=== PATIENT | female | born 1980 | race Caucasian/White ===

== ENCOUNTER 2019-10-31 18:00 | Emergency (ER) | payer OTHER, SELFPAY ==
[2019-10-31 18:35] VITALS: BP 139/83; PULSE 100; RESP 14; TEMP 37; O2SAT 99
--- NOTE | 2019-10-31 18:56 | ED.GENADULT ---
HPI - General Adult General Chief complaint: Upper Respiratory Infection Stated complaint: sore throat Time Seen by Provider: 10/31/19 18:56 Source: patient and RN notes reviewed Mode of arrival: ambulatory Limitations: no limitations History of Present Illness HPI narrative: This is a 39 years old female presented office for evaluation of possible strep.Complain of sore throat for 2 weeks. Denies any other associated symptoms such as fever, cough,Or vomiting however she was exposed to strep at home. Related Data Home Medications Medication Instructions Recorded Confirmed Singulair 10 mg PO DAILY 09/06/19 10/31/19 escitalopram oxalate [Lexapro] 20 mg PO DAILY 09/06/19 10/31/19 loratadine 10 mg PO DAILY 09/06/19 10/31/19 albuterol sulfate 2 puff INHALATION QID PRN 10/31/19 10/31/19 budesonide-formoterol [Symbicort] 2 puff INHALATION Q12H 10/31/19 10/31/19 Allergies Allergy/AdvReac Type Severity Reaction Status Date / Time No Known Allergies Allergy Unknown Verified 10/31/19 18:42 Review of Systems Review of Systems: Narrative: CONSTITUTIONAL: Denies fever, chills, sweats. ENT: Denies rhinorrhea, congestion, otalgia. CARDIOVASCULAR: Denies chest pain RESPIRATORY: Denies dyspnea, wheezing, cough GASTROINTESTINAL: Denies abdominal pain, nausea, vomiting, diarrhea. GENITOURINARY: Denies urinary symptoms SKIN: Denies rash MUSCULOSKELETAL: Denies acute back pain, joint pain, or myalgia. NEUROLOGIC: Denies numbness, or focal weakness. PMFSH Past Medical History Medical History Anxiety Asthma Endometriosis Lipoma left chest No pertinent family history Seasonal allergies Surgical History Surgical History H/O section H/O laparoscopy Social History Social History Smoking status: Never smoker Comments At time of signature, I agree with nursing past medical, surgical, social and family history. There is no relevant family history pertinent to the presenting complaint. Exam Narrative: Exam Narrative: GENERAL: This is a well-nourished, well-developed patient, in no apparent distress. EYES: Sclera clear/white. Vision is grossly intact. EARS: External ears normal, auditory canals clear and without drainage, TMs normal without perforation. Hearing grossly intact. NOSE: External nose normal with no obvious nasal discharge, nares without redness, no rhinorrhea. THROAT: Mucous membranes moist, posterior pharynx pink with drainage. NECK: Neck supple, non-tender without lymphadenopathy, masses or thyromegaly. CARDIOVASCULAR: Regular rate and rhythm without murmurs, gallops, or rubs. RESPIRATORY: Clear to auscultation. Breath sounds equal bilaterally. No wheezes, rales, or rhonchi. GASTROINTESTINAL: Abdomen soft, non-tender, nondistended. Bowel sounds are active. No hepato-splenomegaly, or palpable masses. No guarding. SKIN: warm, intact with no suspicious lesions or rash, good texture and turgor. NEURO: awake, alert, and oriented to person, place and time. There were no obvious focal neurologic abnormalities. Steady gait [place] Coma Scale Eye Opening: Spontaneous 4 [place] Coma Scale Motor: Obeys Commands 6 [place] Coma Scale Verbal: Oriented 5 Course Vital Signs Vital signs: Vital Signs Temperature 98.6 F 10/31/19 18:35 Pulse Rate 100 10/31/19 18:35 Respiratory Rate 14 10/31/19 18:35 Blood Pressure 139/83 10/31/19 18:35 Pulse Oximetry 99 10/31/19 18:35 Temperature 98.6 F 10/31/19 18:35 Pulse Rate 100 10/31/19 18:35 Respiratory Rate 14 10/31/19 18:35 Blood Pressure 139/83 10/31/19 18:35 Pulse Oximetry 99 10/31/19 18:35 Medical Decision Making MDM Narrative Medical decision making narrative: Discharge instructions reviewed with patient, as well as provided in writing per nursing staff. The
== END 2019-10-31 19:08 | disposition home or self-care (01) ==
PROVIDERS: Emergency Provider Nurse Practitioner; PCP Internal Medicine
DX: J02.9 Acute pharyngitis, unspecified (principal); R03.0 Elevated blood-pressure reading, without diagnosis of hypertension; J45.909 Unspecified asthma, uncomplicated; N80.9 Endometriosis, unspecified; F41.9 Anxiety disorder, unspecified
CPT/HCPCS: 87081; 87880; 99213; G0463

== ENCOUNTER 2020-06-26 08:07 | Emergency (ER) | payer OTHER, SELFPAY ==
[2020-06-26 08:12] VITALS: BP 122/70; PULSE 88; RESP 20; TEMP 36.6; O2SAT 100
--- NOTE | 2020-06-26 08:16 | ED.URI ---
HPI - URI/Sore Throat General Chief Complaint: Upper Respiratory Infection Stated Complaint: sore throat Time Seen by Provider: 06/26/20 08:16 Source: patient and RN notes reviewed History of Present Illness HPI Narrative: Patient is a 40-year-old female who presents the urgent care with complaints of sore throat, sneezing and runny nose. Patient states that her kids were symptomatic first and then her symptoms started yesterday. 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 Patient denies of any fever, nausea, vomiting, headache, lethargy. States that she does take Zyrtec daily but otherwise has not used any [id number] medication for symptoms. Patient states that her kids have gotten better and she believes it was just their normal cold . No other acute complaints. No acute distress noted. Patient aware of the plan of care. Some parts of this dictation were generated by voice recognition software and may contain typographical and/or grammatical inaccuracies. Related Data Home Medications Medication Instructions Recorded Confirmed escitalopram oxalate [Lexapro] 20 mg PO DAILY 09/06/19 10/31/19 albuterol sulfate 2 puff INHALATION QID PRN 10/31/19 10/31/19 budesonide-formoterol [Symbicort] 2 puff INHALATION Q12H 10/31/19 10/31/19 cetirizine [Zyrtec] 10 mg PO DAILY 06/26/20 06/26/20 montelukast [Singulair] 10 mg PO DAILY 06/26/20 06/26/20 norethindrone-e.estradiol-iron [Lo 1 tablet PO DAILY 06/26/20 06/26/20 Loestrin Fe] Allergies Allergy/AdvReac Type Severity Reaction Status Date / Time No Known Allergies Allergy Unknown Verified 06/26/20 08:29 Review of Systems Review of Systems: Narrative: CONSTITUTIONAL: Denies fever, chills, or sweats. EYES: Denies visual changes, redness, or discharge. ENT: Reports of rhinorrhea, sore throat, postnasal drainage CARDIOVASCULAR: Denies chest pain, palpitations, or edema. RESPIRATORY: Denies cough or dyspnea. GASTROINTESTINAL: Denies abdominal pain, nausea, vomiting, or diarrhea. GENITOURINARY: Denies dysuria or hematuria. SKIN: Denies rash or itching. MUSCULOSKELETAL: Denies back pain, joint pain, or myalgia. NEUROLOGIC: Denies headache, numbness, or weakness. All other systems reviewed are negative, except as documented in HPI. PMFSH Social History Social History Smoking status: Never smoker Comments At the time of my signature, I reviewed and agree with the nursing past medical, surgical, social, and family history. There is no relevant family history pertinent to the patient complaint. Exam Narrative: Exam Narrative: GENERAL: This is a well-nourished, well-developed patient, in no apparent distress. HEAD: normocephalic, atraumatic. EYES: PERRL. Sclera clear/white. Vision is grossly intact. EARS: External ears normal, auditory canals clear and without drainage, TMs normal without perforation. Hearing grossly intact. NOSE: External nose normal with no obvious nasal discharge, nares without redness, no rhinorrhea. THROAT: Mucous membranes moist, mild erythema noted posterior oropharynx without exudate or ulceration. Mild postnasal drainage. NECK: Neck supple, non-tender without lymphadenopathy, masses or thyromegaly. CARDIOVASCULAR: Regular rate and rhythm without murmurs, gallops, or rubs. RESPIRATORY: Clear to auscultation. Breath sounds equal bilaterally. No wheezes, rales, or rhonchi. SKIN: warm, intact with no suspicious lesions or rash, good texture and turgor. NEURO: awake, alert, and oriented to person, place and time. There were no obvious focal neurologic abnormalities. EXTREMITIES: No clubbing, cyanosis, or edema. Course Vital Signs Vital signs: Vital Signs Temperature 98 F 06/26/20 08:12 Pulse Rate 88 06/26/20 08:12 Respiratory Rate 20 06/26/20 08:12 Blood Pressure 122/70 06/26/20 08:12 Pulse Oximetry 100 09
== END 2020-06-26 08:42 | disposition home or self-care (01) ==
PROVIDERS: Emergency Provider Nurse Practitioner Family; PCP Internal Medicine
DX: J02.9 Acute pharyngitis, unspecified (principal); J45.909 Unspecified asthma, uncomplicated; F41.9 Anxiety disorder, unspecified; F32.9 Major depressive disorder, single episode, unspecified
CPT/HCPCS: 87081; 87804; 87880; 99213; G0463

== ENCOUNTER 2021-07-26 10:28 | Emergency (ER) | payer OTHER, SELFPAY ==
[2021-07-26 10:35] VITALS: BP 133/80; PULSE 95; RESP 18; TEMP 36.7; O2SAT 99
--- NOTE | 2021-07-26 10:56 | ED.URI ---
HPI - URI/Sore Throat General Chief Complaint: Upper Respiratory Infection Stated Complaint: throat hurts Time Seen by Provider: 07/26/21 10:56 Source: patient, family and RN notes reviewed Mode of arrival: ambulatory Limitations: no limitations History of Present Illness HPI Narrative: Sara is a 41 year old female who ambulated into the [facility] with c/o sore throat, nasal congestion, and increased use of her rescue inhaler for last five days. She is using claritin daily. Patient states she did recently switch her allergy medication which has increased her congestion. MD elicited complaint: sore throat Related Data Home Medications Medication Instructions Recorded Confirmed escitalopram oxalate [Lexapro] 20 mg PO DAILY 09/06/19 07/26/21 albuterol sulfate 2 puff INHALATION QID PRN 10/31/19 07/26/21 budesonide-formoterol [Symbicort] 2 puff INHALATION Q12H 10/31/19 07/26/21 cetirizine [Zyrtec] 10 mg PO DAILY 06/26/20 07/26/21 montelukast [Singulair] 10 mg PO DAILY 06/26/20 07/26/21 norethindrone-e.estradiol-iron [Lo 1 tablet PO DAILY 06/26/20 07/26/21 Loestrin Fe] Allergies Allergy/AdvReac Type Severity Reaction Status Date / Time No Known Allergies Allergy Unknown Verified 07/26/21 10:46 Review of Systems Review of Systems: CONSTITUTIONAL: Denies body aches, fever, chills, or sweats. EYES: Denies visual changes, redness, or discharge. ENT: + rhinorrhea,+ congestion, + sore throat, denies otalgia. CARDIOVASCULAR: Denies chest pain, palpitations, or edema. RESPIRATORY: Denies cough or dyspnea; increased use of rescue inhaler, + wheezing at home.. GASTROINTESTINAL: Denies abdominal pain, nausea, vomiting, or diarrhea. GENITOURINARY: Denies dysuria or hematuria. SKIN: Denies rash, itching, or wounds. MUSCULOSKELETAL: Denies back pain, joint pain, or myalgia. NEUROLOGIC: Denies headache, numbness, tingling, or weakness. PSYCH: Denies depression or anxiety. All systems reviewed & are unremarkable except as noted in HPI and below PMFSH Past Medical History Medical History (Updated 07/26/21 @ 11:12 by RASHAWN Hair) Anxiety Asthma Endometriosis Lipoma left chest No pertinent family history Seasonal allergies Surgical History Surgical History H/O section H/O laparoscopy Social History Social History Smoking status: Never smoker Comments At time of signature, I have reviewed and agree with nursing past medical, surgical, social and family history unless otherwise noted. Please see nursing chart for further information. There is no relevant family history pertinent to the presenting complaint Exam Narrative: GENERAL: Well-appearing, well-nourished, and in no acute distress. HEAD: Normocephalic, atraumatic. EYES: EOMI. No redness or drainage. Conjunctivae normal. ENT: Mucous membranes pink and moist. Nasal tissue pale, No rhinorrhea. TMs dull with minimal fluid. Throat erythemic, moderate edema no exudate.. Uvula midline. NECK: Normal AROM. Supple. anterior cervical lymphadenopathy. CHEST: No respiratory distress. Clear to auscultation. MUSCULOSKELETAL: No bony tenderness. EXTREMITIES: Normal range of motion. No edema. SKIN: Warm, dry, no rash. Capillary refill normal. Normal skin turgor. NEURO: No focal deficits. Alert and oriented x3. Gait steady. PSYCH: Normal affect. No signs of depression or anxiety. Course Vital Signs Vital signs: Vital Signs Temperature 36.7 C 07/26/21 10:35 Pulse Rate 95 07/26/21 10:35 Respiratory Rate 18 07/26/21 10:35 Blood Pressure 133/80 07/26/21 10:35 Pulse Oximetry 99 07/26/21 10:35 Temperature 36.7 C 07/26/21 10:35 Pulse Rate 95 07/26/21 10:35 Respiratory Rate 18 07/26/21 10:35 Blood Pressure 133/80 07/26/21 10:35 Pulse Oximetry 99 07/26/21 10:35 Reviewed. Pt has been instructed
== END 2021-07-26 11:13 | disposition home or self-care (01) ==
PROVIDERS: Emergency Provider Nurse Practitioner Family; PCP Internal Medicine
DX: J02.9 Acute pharyngitis, unspecified (principal); J45.909 Unspecified asthma, uncomplicated; N80.9 Endometriosis, unspecified; F41.9 Anxiety disorder, unspecified
CPT/HCPCS: 87081; 87880; 99213; G0463

== ENCOUNTER 2022-04-25 11:53 | Emergency (ER) | payer OTHER, SELFPAY ==
[2022-04-25 12:06] VITALS: BP 136/92; PULSE 101; RESP 16; TEMP 36.8; O2SAT 99
--- NOTE | 2022-04-25 12:20 | ED.URI ---
HPI - URI/Sore Throat General Chief Complaint: Upper Respiratory Infection Stated Complaint: Sore Throat Time Seen by Provider: 04/25/22 12:20 History of Present Illness HPI Narrative: 42-year-old female presented for complaint of sore throat for 1 week. Endorses occasional nonproductive cough. had a negative COVID test at home 4 days ago. She denies shortness of breath, wheezing, nausea, vomiting, diarrhea, fevers or chills. She has been taking [id number] Vicks nasal spray and Tylenol for symptoms. She denies sick contacts. Related Data Home Medications Medication Instructions Recorded Confirmed escitalopram oxalate 20 mg tablet 20 mg PO DAILY 09/06/19 04/25/22 (Lexapro) albuterol sulfate 90 mcg/actuation 2 puff inhalation QID PRN Dyspnea 10/31/19 04/25/22 aerosol inhaler budesonide-formoterol HFA 160 2 puff inhalation Q12H 10/31/19 04/25/22 mcg-4.5 mcg/actuation aerosol inhaler (Symbicort) cetirizine 10 mg tablet (Zyrtec) 10 mg PO DAILY 06/26/20 04/25/22 montelukast 10 mg tablet 10 mg PO DAILY 06/26/20 04/25/22 (Singulair) Allergies Allergy/AdvReac Type Severity Reaction Status Date / Time No Known Allergies Allergy Unknown Verified 04/25/22 12:16 Review of Systems Review of Systems: CONSTITUTIONAL: Denies body aches, fever, chills, or sweats. EYES: Denies visual changes, redness, or discharge. ENT: Denies rhinorrhea, congestion CARDIOVASCULAR: Denies chest pain, palpitations, or edema. RESPIRATORY: Denies dyspnea. GASTROINTESTINAL: Denies abdominal pain, nausea, vomiting, or diarrhea. SKIN: Denies rash, itching, or wounds. MUSCULOSKELETAL: Denies back pain, joint pain, or myalgia. NEUROLOGIC: Denies headache PMFSH Past Medical History Medical History Anxiety Asthma Endometriosis Lipoma left chest No pertinent family history Seasonal allergies Surgical History Surgical History H/O section H/O laparoscopy Social History Social History Smoking status: Never smoker Exam Narrative: GENERAL: well-appearing, no acute distress. EYES: conjunctivae clear ENT: Mucous membranes moist. TM pearly deshpande with normal light reflex bilaterally; no tragal tenderness. Oropharynx erythematous without lesions. Tonsils enlarged and without exudate. No drooling, no hoarseness, no trismus, uvula midline. No tripod positioning, hot potato voice, or soft palate swelling. NECK: Supple. No lymphadenopathy CHEST: Clear to auscultation, breath sounds equal. HEART: Regular rate and rhythm. No murmur heard. SKIN: Warm, dry, no rash. NEURO: Alert and oriented x3. Course Course Emergency Course: Patient is aware of diagnosis, understands and agrees to treatment plan. Anticipatory guidance given. Patient agrees to follow-up as directed and is aware of reasons to seek care at the emergency department. Portions of this record may have been created with voice recognition software Level of Care: Express Care Visit Vital Signs Vital signs: Vital Signs Temperature 98.2 F 04/25/22 12:06 Pulse Rate 101 H 04/25/22 12:06 Respiratory Rate 16 04/25/22 12:06 Blood Pressure 136/92 H 04/25/22 12:06 Pulse Oximetry 99 04/25/22 12:06 Oxygen Delivery Room Air 04/25/22 12:06 Temperature 98.2 F 04/25/22 12:06 Pulse Rate 101 H 04/25/22 12:06 Respiratory Rate 16 04/25/22 12:06 Blood Pressure 136/92 H 04/25/22 12:06 Pulse Oximetry 99 04/25/22 12:06 Oxygen Delivery Room Air 04/25/22 12:06 MDM - URI/Sore Throat MDM Narrative Medical decision making narrative: strep result reviewed with pt. Advise supportive treatments. Patient is appropriate for outpatient treatment and follow-up. Differential Diagnosis Differential diagnosis: Likely upper respiratory infection, viral infectio
== END 2022-04-25 12:30 | disposition home or self-care (01) ==
PROVIDERS: Emergency Provider Nurse Practitioner Family; PCP Internal Medicine
DX: J02.9 Acute pharyngitis, unspecified (principal); J45.909 Unspecified asthma, uncomplicated; N80.9 Endometriosis, unspecified; F41.9 Anxiety disorder, unspecified
CPT/HCPCS: 87081; 87880; 99213; G0463

== ENCOUNTER 2022-04-30 14:24 | Emergency (ER) | payer OTHER, SELFPAY ==
[2022-04-30 14:29] VITALS: BP 125/77; PULSE 99; RESP 16; TEMP 36.4; O2SAT 100
--- NOTE | 2022-04-30 14:53 | ED.URI ---
HPI - URI/Sore Throat General Chief Complaint: Upper Respiratory Infection Stated Complaint: Sinus Pain Time Seen by Provider: 04/30/22 15:10 History of Present Illness HPI Narrative: 42 year old female presents to [facility] care with complaints of continued nasal congestion for 14 days with green nasal drainage present. Patient reports that she was seen last week on Wednesday with continued symptoms of sinus congestion, sinus pressure drainage , cough, is leaving on vacation and she wants antibiotic. Patient reports that she has taken Tylenol cold and flu medication and also presently taking Advil cold and flu medication with no improvement in her symptoms. Patient had negative strep screen and culture at last visit and her home COVID test was negative. MD elicited complaint: cough, rhinorrhea and nasal congestion Pertinent past history: sinusitis, asthma and seasonal allergies Onset (ago): week(s) (2) Treatments prior to arrival: acetaminophen and cold medicine Related Data Home Medications Medication Instructions Recorded Confirmed escitalopram oxalate 20 mg tablet 20 mg PO DAILY 09/06/19 04/25/22 (Lexapro) albuterol sulfate 90 mcg/actuation 2 puff inhalation QID PRN Dyspnea 10/31/19 04/25/22 aerosol inhaler budesonide-formoterol HFA 160 2 puff inhalation Q12H 10/31/19 04/25/22 mcg-4.5 mcg/actuation aerosol inhaler (Symbicort) cetirizine 10 mg tablet (Zyrtec) 10 mg PO DAILY 06/26/20 04/25/22 montelukast 10 mg tablet 10 mg PO DAILY 06/26/20 04/25/22 (Singulair) Allergies Allergy/AdvReac Type Severity Reaction Status Date / Time No Known Allergies Allergy Unknown Verified 04/25/22 12:16 Review of Systems Review of Systems: CONSTITUTIONAL: Denies fever, chills, or sweats. EYES: Denies visual changes, redness, or discharge. ENT: positive rhinorrhea, congestion, no sore throat, or otalgia. CARDIOVASCULAR: Denies chest pain, palpitations, or edema. RESPIRATORY: Some coughing noted with no dyspnea. GASTROINTESTINAL: Denies abdominal pain, nausea, vomiting, or diarrhea. GENITOURINARY: Denies dysuria or hematuria. SKIN: Denies rash or itching. MUSCULOSKELETAL: Denies back pain, joint pain, or myalgia. NEUROLOGIC: Denies headache, numbness, or weakness. PSYCHIATRIC: Positive for anxiety or depression. All systems reviewed & are unremarkable except as noted in HPI and below PMFSH Past Medical History Medical History (Updated 04/30/22 @ 15:16 by Rayna Cr NP) Anxiety Asthma Endometriosis History of sinus problem Lipoma left chest No pertinent family history Seasonal allergies Surgical History Surgical History (Updated 04/30/22 @ 15:54 by Rayna Cr NP) H/O section H/O laparoscopy History of endometrial ablation Social History Social History (Updated 04/30/22 @ 15:20 by Rayna Cr NP) Smoking status: Never smoker Alcohol intake: current Alcohol use details: social Substance use type: does not use Living arrangements: with family Gender identity (if verbalized by the patient): Female Comments At time of signature, agree with nursing past medical, surgical, social and family history. There is no relevant family history pertinent to the presenting complaint Exam Narrative: GENERAL: Well-appearing, well-nourished, and in no acute distress. HEAD: Normocephalic, atraumatic. EYES: PERRLA and EOMI. ENT: Nares red swollen with green tinged rhinorrhea no epistaxis. Mucous membranes moist.TM's normal with dull light reflex, throat red with no lesions exudates or tonsil swelling NECK: Supple.no lymphadenopathy CHEST: Clear to auscultation. No respiratory distress.SO2 100% on room air HEART: Regular rate and rhythm. No murmur heard. Normal peripheral pulses. ABDOMEN: Soft, nontender, nondistended, normal active bowel sounds. EXTREMITIES: Normal range of motion. No edema. SKIN: Warm, dry, no rash. NEURO: No focal deficits. Alert and oriented x3. Course Co
== END 2022-04-30 15:07 | disposition home or self-care (01) ==
PROVIDERS: Emergency Provider Registered Nurse; PCP Internal Medicine
DX: J32.9 Chronic sinusitis, unspecified (principal); J45.909 Unspecified asthma, uncomplicated; N80.9 Endometriosis, unspecified; F41.9 Anxiety disorder, unspecified
CPT/HCPCS: 99213; G0463

== ENCOUNTER 2022-08-22 17:08 | Emergency (ER) | payer OTHER, SELFPAY ==
[2022-08-22 17:29] VITALS: BP 134/81; PULSE 80; RESP 16; TEMP 36.4; O2SAT 100
--- NOTE | 2022-08-22 20:03 | ED.GENADULT ---
HPI - General Adult General Chief complaint: Extremity Injury, Upper Stated complaint: Right arm forearm/elbow pain Time Seen by Provider: 08/22/22 19:50 Source: patient and RN notes reviewed Mode of arrival: ambulatory Limitations: no limitations History of Present Illness HPI narrative: 42-year-old female who presents to [facility] with complaints pain to her right forearm and elbow region since last night. Patient states it hurts to grasp and pain shoots up her right arm. Patient has been taking Ibuprofen and wearing tennis elbow brace. Patient denies any tingling or numbness to her right arm or her fingers, patient has strong pulses to right arm. MD complaint: Right arm pain and elbow pain Onset (ago): day(s) (1) Severity scale (1-10): 6 Treatments prior to arrival: other (Ibuprofen) Related Data Home Medications Medication Instructions Recorded Confirmed escitalopram oxalate 20 mg tablet 20 mg PO DAILY 09/06/19 08/22/22 (Lexapro) albuterol sulfate 90 mcg/actuation 2 puff inhalation QID PRN Dyspnea 10/31/19 08/22/22 aerosol inhaler budesonide-formoterol HFA 160 2 puff inhalation Q12H 10/31/19 08/22/22 mcg-4.5 mcg/actuation aerosol inhaler (Symbicort) cetirizine 10 mg tablet (Zyrtec) 10 mg PO DAILY 06/26/20 08/22/22 montelukast 10 mg tablet 10 mg PO DAILY 06/26/20 08/22/22 (Singulair) Allergies Allergy/AdvReac Type Severity Reaction Status Date / Time No Known Allergies Allergy Unknown Verified 08/22/22 18:33 Review of Systems Review of Systems: CONSTITUTIONAL: Denies fever, chills, or sweats. CARDIOVASCULAR: Denies chest pain, palpitations, or edema. RESPIRATORY: Denies cough or dyspnea. SKIN: Denies rash or itching. Denies lacerations or abrasions MUSCULOSKELETAL: Reports pain to right forearm and elbow region with increase pain when trying to grasp with right arm and hand NEUROLOGIC: Denies numbness, or weakness. All systems reviewed & are unremarkable except as noted in HPI and below [facility] Past Medical History Medical History (Updated 08/23/22 @ 00:00 by Background Daemon) Anxiety Asthma Endometriosis History of sinus problem Lipoma left chest No pertinent family history Seasonal allergies Surgical History Surgical History (Updated 04/30/22 @ 15:54 by Rayna Cr NP) H/O section H/O laparoscopy History of endometrial ablation Social History Social History (Updated 04/30/22 @ 15:20 by Rayna Cr NP) Smoking status: Never smoker Alcohol intake: current Alcohol use details: social Substance use type: does not use Gender identity (if verbalized by the patient): Female Comments At time of signature, agree with nursing past medical, surgical, social and family history. There is no relevant family history pertinent to the presenting complaint Exam Narrative: GENERAL: Well-appearing, well-nourished, and in no acute distress. HEAD: Normocephalic, atraumatic. EYES: PERRLA and EOMI. ENT: Nares clear, no rhinorrhea or epistaxis. Mucous membranes moist.TM's normal with good light reflex, throat pink with no lesion, exudates or swelling. NECK: Supple. no lymphadenopathy CHEST: Clear to auscultation. No respiratory distress.SAO2 100% on room air HEART: Regular rate and rhythm. No murmur heard. Normal peripheral pulses. ABDOMEN: Soft, nontender, nondistended, normal active bowel sounds. EXTREMITIES: Normal range of motion. No edema.pain to right forearm and elbow region with some shooting pains voiced, strong pulses to right arm with no tingling or numbness voiced. SKIN: Warm, dry, no rash. NEURO: No focal deficits. Alert and oriented x3. Course Course Level of Care: Express Care Visit Vital Signs Vital signs: Vital Signs Temperature 36.4 C L 08/22/22 17:29 Pulse Rate 80 08/22/22 17:29 Respiratory Rate 16 08/22/22 17:29 Blood Pressure 134/81 08/22/22 17:29 Pulse Oximetry 100 08/22/22 17:29 Oxygen Delivery Room Air
== END 2022-08-22 20:15 | disposition home or self-care (01) ==
PROVIDERS: Emergency Provider Registered Nurse; PCP Internal Medicine
DX: M77.8 Other enthesopathies, not elsewhere classified (principal); J45.909 Unspecified asthma, uncomplicated; N80.9 Endometriosis, unspecified
CPT/HCPCS: 99213; G0463

== ENCOUNTER 2023-07-04 14:00 | Emergency (ER) | payer OTHER, SELFPAY ==
[2023-07-04 14:16] VITALS: BP 119/76; PULSE 102; RESP 20; TEMP 37.1; O2SAT 95
--- NOTE | 2023-07-04 14:59 | ED.GENADULT ---
HPI - General Adult General Chief complaint: Upper Respiratory Infection Stated complaint: cough/rattling chest Source: patient Mode of arrival: ambulatory Limitations: no limitations History of Present Illness HPI narrative: Patient presents for evaluation of cough for the last 1-1.5 weeks. Cough is productive and she has associated shortness of breath. No fever chills nausea vomiting, diarrhea. She has mild sore throat that she attributes to frequent coughing episodes. She has an underlying history of asthma. She has tried taking Robitussin and Mucinex without considerable improvement in her symptoms thereafter. No identified specific sick contacts. She does not smoke. Related Data Home Medications Medication Instructions Recorded Confirmed escitalopram oxalate 20 mg tablet 20 mg PO DAILY 09/06/19 07/04/23 (Lexapro) albuterol sulfate 90 mcg/actuation 2 puff inhalation QID PRN Dyspnea 10/31/19 07/04/23 aerosol inhaler budesonide-formoterol HFA 160 2 puff inhalation Q12H 10/31/19 07/04/23 mcg-4.5 mcg/actuation aerosol inhaler (Symbicort) cetirizine 10 mg tablet (Zyrtec) 10 mg PO DAILY 06/26/20 07/04/23 montelukast 10 mg tablet 10 mg PO DAILY 06/26/20 07/04/23 (Singulair) lansoprazole 15 mg capsule,delayed 15 mg PO DAILY 07/04/23 07/04/23 release Allergies Allergy/AdvReac Type Severity Reaction Status Date / Time No Known Allergies Allergy Unknown Verified 07/04/23 14:13 Review of Systems Review of Systems: CONSTITUTIONAL: Denies fever, chills, or sweats. EYES: Denies visual changes, redness, or discharge. ENT: Reports mild sore throat. Denies rhinorrhea, congestion, or otalgia. CARDIOVASCULAR: Denies chest pain, palpitations, or edema. RESPIRATORY: Reports cough and shortness of breath GASTROINTESTINAL: Denies abdominal pain, nausea, vomiting, or diarrhea. GENITOURINARY: Denies dysuria or hematuria. SKIN: Denies rash or itching. MUSCULOSKELETAL: Denies back pain, joint pain, or myalgia. NEUROLOGIC: Denies headache, numbness, dizziness, or weakness. PSYCHIATRIC: Denies anxiety or depression. [facility] Past Medical History Medical History Anxiety Asthma Endometriosis History of sinus problem Lipoma left chest No pertinent family history Seasonal allergies Surgical History Surgical History H/O section H/O laparoscopy History of endometrial ablation Family History Family History Mother Family history non-contributory Social History Social History Smoking status: Never smoker Alcohol intake: current Alcohol use details: social Substance use type: does not use Living arrangements: with family Gender identity (if verbalized by the patient): Female Sexual Orientation (if Verbalized by the Patient): Straight or Heterosexual Spiritual care concerns: No Exam Narrative: GENERAL: Well-appearing, well-nourished, and in no acute distress. HEAD: Normocephalic, atraumatic. EYES: PERRLA and EOMI. ENT: Nares clear, no rhinorrhea or epistaxis. Mucous membranes moist. Oropharynx without tonsillar hypertrophy exudate or other lesions. Bilateral TMs pearly deshpande nonbulging NECK: Supple. No adenopathy or masses. No carotid bruits or JVD CHEST: Rales noted in posterior lung gordon bilaterally. Cough present on exam. HEART: Regular rate and rhythm. No murmur heard. Normal peripheral pulses. ABDOMEN: Soft, nontender, nondistended, normal active bowel sounds. EXTREMITIES: Normal range of motion. No edema. SKIN: Warm, dry, no rash. NEURO: No focal deficits. Alert and oriented x3. PSYCH: Normal mood and affect. Course Course Emergency Course: This is a 43-year-old female who presented for evaluation of cough. COVID, flu,
== END 2023-07-04 15:04 | disposition home or self-care (01) ==
PROVIDERS: Emergency Provider Nurse Practitioner; PCP Internal Medicine
DX: J45.909 Unspecified asthma, uncomplicated (principal); Z79.899 Other long term (current) drug therapy; Z20.822 Contact with and (suspected) exposure to COVID-19
CPT/HCPCS: 87081; 87426; 87804; 87880; 99213; C9803; G0463

== ENCOUNTER 2024-06-22 09:25 | Emergency (ER) | payer OTHER, SELFPAY ==
[2024-06-22 09:32] VITALS: BP 115/68; PULSE 107; RESP 20; TEMP 37.4; O2SAT 99
--- NOTE | 2024-06-22 09:52 | ED.URI ---
HPI - URI/Sore Throat General Chief Complaint: Upper Respiratory Infection Stated Complaint: cough/chest congestion Time Seen by Provider: 06/22/24 09:52 Source: patient Mode of arrival: ambulatory Limitations: no limitations History of Present Illness HPI Narrative: 44-year-old female presents with complaint cough, chest congestion, runny nose and nasal congestion approximately 1 week. History of asthma. Has been using albuterol inhaler as prescribed. Also takes Zyrtec daily. Has tried [id number] DayQuil NyQuil to treat symptoms without little relief. Cough worse at night. Shortness of breath with exertion. Afebrile. All systems reviewed and negative except as noted above. Related Data Home Medications Medication Instructions Recorded Confirmed escitalopram oxalate 20 mg tablet 20 mg PO DAILY 09/06/19 07/04/23 (Lexapro) albuterol sulfate 90 mcg/actuation 2 puff inhalation QID PRN Dyspnea 10/31/19 07/04/23 aerosol inhaler budesonide-formoterol HFA 160 2 puff inhalation Q12H 10/31/19 07/04/23 mcg-4.5 mcg/actuation aerosol inhaler (Symbicort) cetirizine 10 mg tablet (Zyrtec) 10 mg PO DAILY 06/26/20 07/04/23 montelukast 10 mg tablet 10 mg PO DAILY 06/26/20 07/04/23 (Singulair) lansoprazole 15 mg capsule,delayed 15 mg PO DAILY 07/04/23 07/04/23 release Allergies Allergy/AdvReac Type Severity Reaction Status Date / Time No Known Allergies Allergy Unknown Verified 07/04/23 14:13 [facility] Past Medical History Medical History Anxiety Asthma Endometriosis History of sinus problem Lipoma left chest No pertinent family history Seasonal allergies Surgical History Surgical History H/O section H/O laparoscopy History of endometrial ablation Family History Family History Mother Family history non-contributory Social History Social History Smoking status: Never smoker Alcohol intake: current Alcohol use details: social Substance use type: does not use Living arrangements: with family Gender identity (if verbalized by the patient): Female Sexual Orientation (if Verbalized by the Patient): Straight or Heterosexual Spiritual care concerns: No Comments At time of signature, agree with nursing past medical, surgical, social and family history. There is no relevant family history pertinent to the presenting complaint. Exam Narrative: GENERAL: This is a well-nourished, well-developed patient, in no apparent distress. HEAD: normocephalic, atraumatic. EYES: PERRL. Sclera clear/white. Vision is grossly intact. EARS: External ears normal, auditory canals clear and without drainage, TMs normal without perforation. Hearing grossly intact. NOSE: External nose normal with Clear nasal drainage, mild congestion, erythema to bilateral nares THROAT: Mucous membranes moist, posterior pharynx clear. NECK: Neck supple, non-tender without lymphadenopathy, masses or thyromegaly. CARDIOVASCULAR: Regular rate and rhythm without murmurs, gallops, or rubs. RESPIRATORY: coarse throughout all lung gordon on expiration. Breath sounds equal bilaterally. No wheezes, rales, or rhonchi. SKIN: warm, Dry, intact with no suspicious lesions or rash, good texture and turgor. NEURO: awake, alert, and oriented to person, place and time. There were no obvious focal neurologic abnormalities. EXTREMITIES: No joint tenderness, effusion, or edema noted. Course Course Level of Care: Express Care Visit Reevaluation(s) Reevaluation #1: coarse lung sounds cleared by some mild rhonchi to bilateral lower lung gordon. Vital Signs Vital signs: Vital Signs Temperature 37.4 C 06/22/24 09:32 Pulse Rate 107 H 06/22/24 09:32 Respiratory Rate 20
[2024-06-22 09:54] VITALS: BP 115/68; PULSE 107; RESP 20; TEMP 37.4; O2SAT 99
[2024-06-22] MEDS: IPRATROPIUM 0.5 MG/ALBUTEROL SULFATE 2.5 MG AMPUL.NEB 3 ML INHALATION (10:11)
[2024-06-22] MEDS: predniSONE 20 MG TABLET 40 MG PO (10:12)
[2024-06-22 10:14] LABS: EDINFLUASCREEN Negative (Negative); EDINFLUBSCREEN Negative (Negative)
== END 2024-06-22 10:56 | disposition home or self-care (01) ==
PROVIDERS: Emergency Provider Nurse Practitioner Family; PCP Nurse Practitioner
DX: J45.21 Mild intermittent asthma with (acute) exacerbation (principal)
CPT/HCPCS: 87804; 94640; 99213; G0463; J7512